=== PATIENT | male | born 1980 | race Caucasian/White ===

== ENCOUNTER 2018-05-18 14:08 | Outpatient (CLI) | payer OTHER ==
[~2018-05-18] VITALS: Ht 175.3 cm; Wt 79.9 kg
[2018-05-18] MEDS ORDERED: LIALDA 1.2 GM1.2 GM PO (15:11)
[2018-05-18 15:12] VITALS: BP 115/71; PULSE 70; TEMP 98.1
== END 2018-05-18 17:00 | disposition home or self-care (01) ==
LOC: EUO 14:08
DX: K50.90 Crohn's disease, unspecified, without complications (principal)
CPT/HCPCS: J3358; J7050

== ENCOUNTER → 2018-05-30 | Outpatient (CLI) | payer OTHER ==
[~2018-05-30] MED LIST: LIALDA 1.2 GM1.2 GM PO
== END ==
LOC: COL.VAS 12:23
DX: M79.601 Pain in right arm (principal); R20.0 Anesthesia of skin

== ENCOUNTER 2018-08-21 11:00 | Outpatient (RCR) | payer OTHER ==
[2018-08-08 14:32] LABS: HEMOGLOBIN 12.1 g/dl (13.5-18.0); MEAN CELL VOLUME 87 fl (80.0-100.0); MEAN CORPUSCULAR HEMOGLOBIN 29 pg (27.0-31.0); MEAN CORPUSCULAR HGB CONC 33 g/dl (33.0-37.0); MEAN PLATELET VOLUME 8.4 fl (7.4-10.4); PLATELET COUNT 413 K/mm3 (130-400); RED BLOOD COUNT 4.25 M/mm3 (4.20-5.60); REDCELL DISTRIBUTION WIDTH-CV 11.9 % (11.5-14.5)
[2018-08-08 14:33] LABS: HEMATOCRIT 36.8 % (42.0-52.0)
[2018-08-08 14:56] LABS: ALBUMIN 3.8 gm/dL (3.5-5.0); BILIRUBIN,TOTAL 0.2 mg/dL (0.0-1.0); CALCIUM 8.9 mg/dL (8.4-10.2); CREATININE, serum 0.64 mg/dL (0.66-1.25); POTASSIUM 3.9 mmol/L (3.4-5.0); TOTAL PROTEIN 7.2 gm/dL (6.4-8.2)
[2018-08-08 15:20] VITALS: BP 119/68; PULSE 75; TEMP 98
[2018-08-08 15:58] VITALS: BP 118/70; PULSE 72; TEMP 98
--- NOTE | 2018-08-08 16:10 | NUR ---
Report received from Trinity Cunningham
[2018-08-08 16:30] VITALS: BP 135/85; PULSE 74
[2018-08-08 16:56] VITALS: BP 125/65; PULSE 83
--- NOTE | 2018-08-08 17:05 | NUR ---
Per pt report he is out of town the week next dose is due and will return that tuesday.appointment scheduled for that day per pt request.
[2018-08-08 17:31] VITALS: BP 119/70; PULSE 71; TEMP 97.8
[~2018-08-21] VITALS: Ht 175.3 cm; Wt 86.4 kg
[~2018-08-21 11:00] MED LIST changes: +PREDNISONE20 MG PO
[2018-08-21 11:22] LABS: HEMATOCRIT 37.5 % (42.0-52.0); HEMOGLOBIN 12.1 g/dl (13.5-18.0); MEAN CELL VOLUME 87 fl (80.0-100.0); MEAN CORPUSCULAR HEMOGLOBIN 28 pg (27.0-31.0); MEAN CORPUSCULAR HGB CONC 32 g/dl (33.0-37.0); MEAN PLATELET VOLUME 8.6 fl (7.4-10.4); PLATELET COUNT 363 K/mm3 (130-400); RED BLOOD COUNT 4.29 M/mm3 (4.20-5.60)
[2018-08-21 11:33] LABS: ALBUMIN 4.3 gm/dL (3.5-5.0); BILIRUBIN,TOTAL 0.7 mg/dL (0.0-1.0); CALCIUM 9.2 mg/dL (8.4-10.2); CREATININE, serum 0.68 mg/dL (0.66-1.25); TOTAL PROTEIN 7.8 gm/dL (6.4-8.2)
[2018-08-21 12:30] VITALS: BP 117/80; PULSE 84; TEMP 98
[2018-08-21 13:00] VITALS: BP 125/71; PULSE 76; TEMP 98.3
[2018-08-21 13:30] VITALS: BP 111/80; BP 117/69; PULSE 73
[2018-08-21 14:00] VITALS: BP 111/80; PULSE 72; TEMP 97.8
[2018-08-21 14:30] VITALS: BP 123/88; PULSE 76; TEMP 98.3
== END 2018-09-14 15:56 | disposition home or self-care (01) ==
LOC: EUO 11:00
PROVIDERS: Internal Medicine Gastroenterology; Physician Assistant
DX: K50.90 Crohn's disease, unspecified, without complications (principal)
CPT/HCPCS: J1200; J7050; Q5103

== ENCOUNTER 2018-09-18 13:00 | Outpatient (RCR) | payer OTHER ==
[~2018-09-18] VITALS: Ht 175.3 cm; Wt 81.8 kg
[2018-09-18 12:50] LABS: HEMATOCRIT 39.2 % (42.0-52.0); HEMOGLOBIN 12.5 g/dl (13.5-18.0); MEAN CELL VOLUME 83 fl (80.0-100.0); MEAN CORPUSCULAR HEMOGLOBIN 27 pg (27.0-31.0); MEAN CORPUSCULAR HGB CONC 32 g/dl (33.0-37.0); MEAN PLATELET VOLUME 8.5 fl (7.4-10.4); PLATELET COUNT 328 K/mm3 (130-400); REDCELL DISTRIBUTION WIDTH-CV 11.9 % (11.5-14.5)
[~2018-09-18 13:00] MED LIST changes: +INFLECTRA100 MG IV
[2018-09-18 13:07] LABS: ALBUMIN 4.4 gm/dL (3.5-5.0); BILIRUBIN,TOTAL 0.7 mg/dL (0.0-1.0); CALCIUM 9.4 mg/dL (8.4-10.2); CREATININE, serum 0.71 mg/dL (0.66-1.25); POTASSIUM 3.6 mmol/L (3.4-5.0); TOTAL PROTEIN 8.1 gm/dL (6.4-8.2)
[2018-09-18 13:44] VITALS: BP 117/72; PULSE 78; TEMP 98.2
[2018-09-18 14:15] VITALS: BP 111/78; PULSE 79
[2018-09-18 14:45] VITALS: BP 115/71; PULSE 68; TEMP 97.8
[2018-09-18 15:15] VITALS: BP 116/74; PULSE 74
[2018-09-18 15:45] VITALS: BP 122/72; PULSE 76
[2018-09-18 16:04] VITALS: BP 120/75; PULSE 80; TEMP 98.1
== END 2018-09-18 16:06 | disposition home or self-care (01) ==
LOC: EUO 13:00
PROVIDERS: Internal Medicine Gastroenterology
DX: K50.90 Crohn's disease, unspecified, without complications (principal)
CPT/HCPCS: J1200; J2930; J7050; Q5103